=== PATIENT | female | born 1940 | race Caucasian/White ===

== ENCOUNTER → 2017-04-21 | Outpatient (CLI) | payer OTHER ==
--- NOTE | 2017-04-22 10:09 | US ---
History: Thyroid nodule. Thyroid ultrasound: Linear transducer examination is performed. No prior study for comparison. The gland is slightly heterogeneous with the right lobe 4.7 x 1.5 x 1.7 cm and left lobe 5.2 x 1.9 x 1.7 cm. Numerous small nodules are seen bilaterally. The largest solitary nodule is a 15 mm cyst in the right thyroid. The isthmus is well-maintained and normal. No suspicious nodule is seen. No lymphadenopathy is suggested. IMPRESSION: Multinodular gland compatible with a benign goiter. Electronically signed by: Courtney Leon MD 04/22/2017 10:05 AM [facility] Workstation: [id number]
== END ==
LOC: US 14:32
PROVIDERS: ATTEND Family Medicine
DX: E04.1 Nontoxic single thyroid nodule (principal)